=== PATIENT | female | born 1945 ===

== ENCOUNTER → 2019-01-16 21:06 | Outpatient (ROUT) | payer MEDICARE, SELFPAY ==
[2019-01-16 21:48] LABS: Add Manual Diff / Slide Review NO; Basophils Absolute Auto 100 /uL (0-100); Basophils Percent Auto 0.7 % (0-2); Eosinophils Absolute Auto 200 /uL (0-450); Eosinophils Percent Auto 1.8 % (2-4); Hematocrit 40.1 % (36-46); Hemoglobin 13.1 g/dL (12.0-16.0); Lymphocytes Absolute Auto 2900 /uL (1100-4500); Lymphocytes Percent Auto 31.2 % (25-40); Mean Corpuscular HGB Conc 32.6 % (30-36); Mean Corpuscular Hemoglobin 27.3 PG (26-34); Mean Corpuscular Volume 83.7 fL (80-100); Monocytes Absolute Auto 800 /uL (0-900); Neutrophils Absolute Auto 5300 /uL (1500-7000); Neutrophils Percent Auto 57.3 % (50-75); Platelet Count 261 X10^3/uL (150-400); Red Cell Distribution Width 15.1 % (11.6-14.8); White Blood Cell Count 9.3 X10^3/uL (4.5-11.0)
[2019-01-16 21:59] LABS: Alanine Aminotransferase 17 IU/L (9-52); Albumin Globulin Ratio 1.5 (1.0-2.8); Alkaline Phosphatase 140 U/L (38-126); Aspartate Aminotransferase 20 IU/L (14-36); Bilirubin Total 0.4 mg/dL (0.2-1.3); Blood Urea Nitrogen 25 mg/dL (7-17); Calcium 9.6 mg/dL (8.4-10.2); Carbon Dioxide 26 mmol/L (22-32); Chloride 103 mmol/L (98-107); Estimated Glomerular Filt Rate 54.2 mL/min (>60); Globulin 2.6 g/dL (1.7-4.1); Glucose 148 mg/dL (80-110); HEMOLYSIS < 15 (0-50); Potassium 3.5 mmol/L (3.4-5.1); Sodium 139 mmol/L (137-145); Total Protein 6.6 g/dL (6.3-8.2)
[2019-01-16 22:44] LABS: B Type Natriuretic Peptide < 100 (<100)
[2019-01-16 23:18] LABS: HEMOLYSIS < 15 (0-50); Iron 34 ug/dL (37-170)
[2019-01-17 00:50] LABS: Percent Iron Saturation 9 % (15-50); Total Iron Binding Capacity 391 ug/dL (265-497); Transferrin 316 mg/dL (206-381)
[2019-01-17 02:54] LABS: Free T3, Triiodothyronine Free 3.03 pg/mL (2.77-5.27); TSH w/ Reflex to FT4 3.82 uIU/mL (0.47-4.68)
[2019-01-22 22:10] LABS: Triiodothyronine T3 Reverse 19 ng/dL (8-25)
== END ==
PROVIDERS: Visit Provider Family Medicine
DX: R53.83 Other fatigue (principal); R63.4 Abnormal weight loss; R06.02 Shortness of breath; I49.9 Cardiac arrhythmia, unspecified; I11.9 Hypertensive heart disease without heart failure; R63.0 Anorexia; I25.2 Old myocardial infarction
CPT/HCPCS: 36415; 80053; 83540; 83550; 83880; 84443; 84481; 84482; 85025